=== PATIENT | female | born 1945 | race Caucasian/White ===

== ENCOUNTER 2017-06-16 12:28 | Observation (INO) ==
[2017-06-16] MEDS ORDERED: 0.9 % Sodium Chloride 1,000 ML ONE (13:15)
[2017-06-16] MEDS: 0.9 % Sodium Chloride 1,000 ML IVC ONE ×2 (13:16→13:25)
--- NOTE | 2017-06-16 13:21 | Emergency Department Note ---
Disposition Clinical Impression: Hypokalemia Constipation Qualifiers: Constipation type: unspecified constipation type Qualified Code(s): K59.00 - Constipation, unspecified Disposition: Admitted As Inpatient Condition: Good Referrals: Hosea Land MD [Primary Care Provider] - Forms: ED Satisfaction Letter, Work/School Release Abdominal Pain HPI - General Chief Complaint: ED Abdominal Pain Stated Complaint: constipated Time Seen by Provider: 06/16/17 12:37 Source: patient, family, EMS Mode of arrival: EMS Nursing Notes Reviewed: Yes Vital Signs Reviewed: Yes - History of Present Illness HPI Narrative: 72-year-old female presents to the ER with a chief complaint of constipation. Patient states she has not had a bowel movement since Saturday. Reports previous to this she had URI symptoms 2 weeks ago. She has a history of asthma and was using her nebulizer at home. States that she was having loose bowel movements but then stopped having them on Saturday. Reports usually goes 1-2 times a day. No prior history of constipation. Denies any history of intra- abdominal surgeries. She has felt nauseated but no vomiting. She has had food aversion during this time. No dysuria or hematuria. No fevers, chest pain or shortness of breath. No other complaints. Pt Subjective Complaint: abdominal pain Onset (ago): day(s) Consistency: constant Location: periumbilical, LLQ, RLQ Pain Severity: moderate Pain Scale: 8 Quality: aching Radiation: none Migration to: no migration Improves with: nothing Worsens with: nothing Associated symptoms: Reports: nausea, constipation. Denies: vomiting, diarrhea , fever, dysuria, hematuria Treatments prior to arrival: none - Related Data Home Medications Medication Instructions Recorded Confirmed Furosemide [Lasix] 40 mg PO DAILY 11/19/15 06/16/17 Hydroxychloroquine [Plaquenuil] 200 mg PO BID 11/19/15 06/16/17 Levothyroxine [Synthroid] 75 mcg PO DAILY 11/19/15 06/16/17 Losartan Potassium [Cozaar] 100 mg PO DAILY 11/19/15 06/16/17 Pravastatin Sodium [Pravachol] 20 mg PO DAILY 11/19/15 06/16/17 Primidone [Mysoline] 100 mg PO BID 11/19/15 06/16/17 Propranolol HCl 40 mg PO BID 11/19/15 06/16/17 Sertraline [Zoloft] 100 mg PO DAILY 11/19/15 06/16/17 Fluticasone/Vilanterol [Breo 1 puff IH DAILY 09/22/16 06/16/17 Ellipta 100-25 Mcg INH] Tizanidine HCl 2 mg PO HS 09/22/16 06/16/17 Vit C/E/Zn/Coppr/Lutein/Zeaxan 1 cap PO DAILY 06/16/17 06/16/17 [Preservision Areds 2 Softgel] hydroCHLOROthiazide 25 mg PO DAILY 06/16/17 06/16/17 [Hydrochlorothiazide] Allergies Allergy/AdvReac Type Severity Reaction Status Date / Time morphine Allergy Rash Verified 11/19/15 11:43 All systems ED: reviewed and negative except as stated. Constitutional: Denies: fever Cardiovascular: Denies: chest pain Respiratory: Denies: dyspnea Gastrointestinal: Reports: abdominal pain, nausea, constipation. Denies: vomiting, diarrhea Genitourinary: Denies: dysuria, hematuria Abdominal Pain PMH - Past Medical History Medical history: Reports: arthritis, asthma, CHF, fibromyalgia, GERD, hyperlipidemia, hypertension, thyroid disease, other Female Surgical History: Reports: other BARK SKINNER history: Reports: no BARK SKINNER history Psychiatric history: Reports: anxiety, depression - Social History Smoking status: Never smoker Alcohol use: Reports: none Drug use: Reports: none Physical Exam - General Limitations: no limitations General appearance: alert, in no apparent distress - Head Head exam: atraumatic - Eye Eye exam: Present: normal appearance - ENT ENT exam: normal exam - Neck Neck exam: Present: normal inspection - Chest Chest inspection: Present: normal inspection, symmetric chest wall rise - Respiratory Respiratory exam: Present: normal lung sounds bilaterally - Cardiovascular Cardiovascular exam: Present: regular rate, normal rhythm, normal heart sounds - Abdominal Exam Abdominal exam: Present: soft, tenderness (Mild tenderness to palpation in the periumbilical as well as bilateral lower quadrants). Absent: guarding, rigidity - Extremities Exam Extremities exam: Present: normal inspection, full ROM - Expanded Upper Extremity Exam Shoulder exam: Present: normal inspection, full ROM Arm exam: Present: normal inspection, full ROM Elbow exam: Present: normal inspection, full ROM Forearm/Wrist exam: Present: normal inspection, full ROM Hand exam: Present: normal inspection, full ROM - Expanded Lower Extremity Exam Hip/Pelvis exam: Present: normal inspection, full ROM Upper leg exam: Present: normal inspection, full ROM Knee exam: Present: normal inspection, full ROM Lower leg exam: Present: normal inspection, full ROM Ankle exam: Present: normal inspection, full ROM Foot/toe exam: Present: normal inspection, full ROM - Skin Skin exam: Present: warm, dry Course Course Narrative: Patient seen and examined. We will obtain a CT scan of the abdomen and pelvis as well as labs and urinalysis. We will do this without contrast as she has no history of intra-abdominal surgeries and obstruction be less likely. - Reevaluation(s) Reevaluation #1: Discussed results of imaging and labs with the patient. We will give her an enema here. We will also replace her potassium oral and IV. Her magnesium is normal. Likely from poor intake while continuing to take her Lasix. Vital Signs Temperature 97.7 F 06/16/17 12:31 Pulse Rate 62 06/16/17 12:31 Respiratory Rate 18 06/16/17 12:31 Blood Pressure 145/53 06/16/17 12:31 O2 Sat by Pulse Oximetry 98 06/16/17 12:31 Temperature 97.7 F 06/16/17 12:31 Pulse Rate 62 06/16/17 12:31 Respiratory Rate 18 06/16/17 12:31 Blood Pressure 145/53 06/16/17 12:31 O2 Sat by Pulse Oximetry 98 06/16/17 12:31 Oxygen Delivery Oxygen Delivery Room Air Abdominal Pain - MDM Narrative Medical decision making narrative: 72-year-old female presents to the ER due to constipation for several days. CT scan demonstrates constipation without evidence of obstruction. Labs urinalysis reviewed. She does demonstrate a UTI. Treated with Rocephin for this. For constipation she received an enema while here. She is noted to be profoundly Elizabet make with a potassium of 2.4. Magnesium is normal. We will begin replacement with oral and IV. Likely from her Lasix with decreased appetite recently. She is admitted to the hospitalist service for hypokalemia. - Lab Data Lab results reviewed: Yes I reviewed the patient's lab results. Result diagrams: 06/16/17 13:12 06/16/17 13:12 Lab Results 06/16/17 06/16/17 06/16/17 Range/Units 13:12 13:12 13:25 WBC 12.0 H (4.3-11.1) K/mcL RBC 4.63 (3.82-4.97) M/mcL Hgb 13.7 (11.5-15.4) g/dL Hct 40.2 (35.3-44.9) % MCV 86.8 (83.0-100.0) fL MCH 29.6 (28.0-33.3) pg MCHC 34.1 (31.6-35.5) g/dL RDW 12.7 (11.5-14.5) % Plt Count 328 (140-400) K/mcL MPV 9.3 L (9.4-12.4) fL Immature Gran % 0.6 (0-4) % Seg Neutrophils % 84.1 % Lymphocytes % 9.0 % Monocytes % 5.9 % Eosinophils % 0.1 % Basophils % 0.3 % Neutrophils # 10.1 H (1.6-8.9) K/mcL Lymphocytes # 1.1 (0.6-4.6) K/mcL Monocytes # 0.7 (0.0-1.3) K/mcL Eosinophils # 0.0 (0.0-0.6) K/mcL Basophils # 0.0 (0.0-0.2) K/mcL PT 11.2 (9.4-12.1) Seconds INR 1.0 Sodium 129 L (136-145) mEq/L Potassium 2.4 L* (3.5-5.1) mEq/L Chloride 87 L (98-107) mEq/L Carbon Dioxide 33 H (23-29) mEq/L BUN 15 (8-23) mg/dL Creatinine 0.71 (0.60-1.20) mg/dL Est GFR ( Amer) > 60 (> 60) Est GFR (Non-Af Amer) > 60 (> 60) BUN/Creatinine Ratio 21 (6-26) Glucose 128 H (70-105) mg/dL Calculated Osmolality 270 L (280-300) Calcium 9.0 (8.6-10.3) mg/dL Magnesium 1.6 (1.6-2.6) mg/dL Total Bilirubin 0.5 (0.3-1.0) mg/dL Direct Bilirubin 0.1 (0.0-0.2) mg/dL Indirect Bilirubin 0.4 (0.0-1.2) mg/dL AST 30 (13-39) Units/L ALT 30 (7-52) Units/L Alkaline Phosphatase 80 (34-104) Units/L Serum Total Protein 6.4 (6.4-8.9) g/dL Albumin 4.2 (3.5-5.7) g/dL Globulin 2.2 L (2.4-3.5) g/dL Albumin/Globulin Ratio 1.9 (1.1-2.2) Lipase 4 L (11-82) Units/L Urine Color (Yellow) Urine Clarity (Clear) Urine pH (5.0-8.0) pH Units Ur Specific [place] (1.010-1.025) Urine Protein (Neg-Trace) mg/dL Urine Glucose (UA) (Normal) mg/dL Urine Ketones (Negative) mg/dL Urine Blood (Negative) Urine Nitrite (Negative) Urine Bilirubin (Negative) Urine Urobilinogen (Normal) mg/dL Ur Leukocyte Esterase (Negative) Urine Microscopic RBC (0-3) per hpf Urine Microscopic WBC (0-3) per hpf Ur Squamous Epith Cells (None-Few) per lpf Urine Bacteria (None-Few) per hpf Hyaline Casts (None-Few) per lpf Ur Culture Indicated? (NO) 06/16/17 Range/Units 14:33 WBC (4.3-11.1) K/mcL RBC (3.82-4.97) M/mcL Hgb (11.5-15.4) g/dL Hct (35.3-44.9) % MCV (83.0-100.0) fL MCH (28.0-33.3) pg MCHC (31.6-35.5) g/dL RDW (11.5-14.5) % Plt Count (140-400) K/mcL MPV (9.4-12.4) fL Immature Gran % (0-4) % Seg Neutrophils % % Lymphocytes % % Monocytes % % Eosinophils % % Basophils % % Neutrophils # (1.6-8.9) K/mcL Lymphocytes # (0.6-4.6) K/mcL Monocytes # (0.0-1.3) K/mcL Eosinophils # (0.0-0.6) K/mcL Basophils # (0.0-0.2) K/mcL PT (9.4-12.1) Seconds INR Sodium (136-145) mEq/L Potassium (3.5-5.1) mEq/L Chloride (98-107) mEq/L Carbon Dioxide (23-29) mEq/L BUN (8-23) mg/dL Creatinine (0.60-1.20) mg/dL Est GFR ( Amer) (> 60) Est GFR (Non-Af Amer) (> 60) BUN/Creatinine Ratio (6-26) Glucose (70-105) mg/dL Calculated Osmolality (280-300) Calcium (8.6-10.3) mg/dL Magnesium (1.6-2.6) mg/dL Total Bilirubin (0.3-1.0) mg/dL Direct Bilirubin (0.0-0.2) mg/dL Indirect Bilirubin (0.0-1.2) mg/dL AST (13-39) Units/L ALT (7-52) Units/L Alkaline Phosphatase (34-104) Units/L Serum Total Protein (6.4-8.9) g/dL Albumin (3.5-5.7) g/dL Globulin (2.4-3.5) g/dL Albumin/Globulin Ratio (1.1-2.2) Lipase (11-82) Units/L Urine Color Yellow (Yellow) Urine Clarity Turbid A (Clear) Urine pH 7.0 (5.0-8.0) pH Units Ur Specific [place] 1.011 (1.010-1.025) Urine Protein 30 H (Neg-Trace) mg/dL Urine Glucose (UA) Normal (Normal) mg/dL Urine Ketones Negative (Negative) mg/dL Urine Blood Large H (Negative) Urine Nitrite Positive A (Negative) Urine Bilirubin Negative (Negative) Urine Urobilinogen Normal (Normal) mg/dL Ur Leukocyte Esterase Moderate H (Negative) Urine Microscopic RBC 0-3 (0-3) per hpf Urine Microscopic WBC 0-3 (0-3) per hpf Ur Squamous Epith Cells Many H (None-Few) per lpf Urine Bacteria Many H (None-Few) per hpf Hyaline Casts None Seen (None-Few) per lpf Ur Culture Indicated? YES A (NO) - Radiology Data Radiology results reviewed: Yes I reviewed the patient's radiology results. Abdomen/Pelvis CT 06/16/17 12:59 IMPRESSION: 1. Findings suggestive of constipation. 2. No acute infective or inflammatory process. 3. Stable findings including diverticulosis, posterior subcapsular right lobe of liver cyst or hemangioma and calcified fibroids. D/ / Ulices Wright MD / Ulices Wright MD Interpreting Provider: Ulices Wright MD - EKG Data EKG attestation: Yes I reviewed and interpreted this EKG. EKG results narrative: EKG demonstrates sinus bradycardia with a rate of 59 bpm. Left axis deviation. Normal intervals. Poor R-wave progression. No gross ST elevations or depressions. No acute ischemic findings. No significant changes from previous EKG dated 05/03/16. Brent - Brent Situation: Demographics, MOA Background: Presenting Complaint, Relevant PMH, Meds, & Allergies Assessment: Course and respsone to treatment, Exam Concerns, Patient/Family Expectation, Pertinant Lab Results Recommendation: Barrier(s) to disposition, Recommendation based on pending studies, treatments, or consults Brent Report Given to: Dr. Doug Kennedy Repor Time: 17:11 Attestation Statement - Attestation Attestation: I examined this patient and my medical decision-making was reviewed with the Resident Physician, Dr. Weiner. I agree with the documented findings, disposition and treatment plan as described except to the extent set forth below. Patient is a 72-year-old white female who presents to the emergency department today with gradually worsening generalized weakness, and constipation. Patient states she is unable to have a bowel movement last Saturday. Since that time she has had some mild underlying nausea and gradually worsening food aversion. Patient denies any localized abdominal pain or flank pain, denies any urinary symptoms, no fevers or chills. Patient is complaining of just some abdominal bloating and distention. She has not had any vomiting or bright red blood per rectum. I agree with the patient's physical exam findings as documented. Patient underwent lab evaluation which showed a significant hypokalemia. Patient states she is on potassium replacement at home and has been tolerating this and taking as directed. Patient's magnesium is within normal limits. Patient was found to have bladder distention as well as a large amount of stool in the rectum on CT scan. No other abnormality was appreciated on the CAT scan. Patient currently is undergoing IV potassium replacement, will have a Mendez catheter placed to drain her bladder for urinary retention, and an enema for her constipation. Once Mendez was placed patient was found to have had a UTI and will be started on antibiotics. Due to her low potassium and need for ongoing replacement we will admit the patient for further evaluation and management as well as her generalized weakness. Case was discussed with hospitalist who accepted the patient for admission.
[2017-06-16 13:23] LABS: Basophils % 0.3 %; Eosinophils % 0.1 %; Hematocrit 40.2 % (35.3-44.9); Hemoglobin 13.7 g/dL (11.5-15.4); Immature Granulocytes % 0.6 % (0-4); Lymphocytes # 1.1 K/mcL (0.6-4.6); Mean Corpuscular HGB Conc 34.1 g/dL (31.6-35.5); Mean Corpuscular Hemoglobin 29.6 pg (28.0-33.3); Mean Corpuscular Volume 86.8 fL (83.0-100.0); Mean Platelet Volume 9.3 fL (9.4-12.4); Monocytes # 0.7 K/mcL (0.0-1.3); Monocytes % 5.9 %; Neutrophils # 10.1 K/mcL (1.6-8.9); Platelet Count 328 K/mcL (140-400); Red Blood Count 4.63 M/mcL (3.82-4.97); Red Cell Distribution Width 12.7 % (11.5-14.5); Segmented Neutrophils % 84.1 %
[2017-06-16] MEDS ORDERED: *HR* HYDROmorphone (PF) 1 MG/ML SYRINGE IVP ONE ×2 (13:33→16:01)
[2017-06-16] MEDS ORDERED: *HR* HYDROmorphone 2 MG/ML SYRINGE ONE ×2 (13:35→16:02)
[2017-06-16 13:41] LABS: Prothrombin Time 11.2 Seconds (9.4-12.1)
[2017-06-16 13:46] LABS: Alanine Aminotransferase 30 Units/L (7-52); Albumin 4.2 g/dL (3.5-5.7); Albumin/Globulin Ratio 1.9 (1.1-2.2); Alkaline Phosphatase 80 Units/L (34-104); Aspartate Amino Transferase 30 Units/L (13-39); BUN/Creatinine Ratio 21 (6-26); Bilirubin,Direct 0.1 mg/dL (0.0-0.2); Bilirubin,Indirect 0.4 mg/dL (0.0-1.2); Bilirubin,Total 0.5 mg/dL (0.3-1.0); Blood Urea Nitrogen 15 mg/dL (8-23); Carbon Dioxide 33 mEq/L (23-29); Chloride 87 mEq/L (98-107); Globulin 2.2 g/dL (2.4-3.5); Glucose 128 mg/dL (70-105); Lipase 4 Units/L (11-82); Osmolality,Calculated 270 (280-300); Potassium 2.4 mEq/L (3.5-5.1); Sodium 129 mEq/L (136-145); Total Protein 6.4 g/dL (6.4-8.9); eGFR For African Americans > 60 (> 60); eGFR For Non-African Americans > 60 (> 60)
[2017-06-16 14:09] LABS: Magnesium 1.6 mg/dL (1.6-2.6)
[2017-06-16] MEDS ORDERED: Milk and Molasses Enema 200 ML RC ONE (14:39)
[2017-06-16 14:41] LABS: Bilirubin,Urine Negative (Negative); Blood,Urine Large (Negative); Clarity,Urine Turbid (Clear); Color,Urine Yellow (Yellow); Glucose,Urine (UA) Normal (Normal); Ketones,Urine Negative (Negative); Leukocyte Esterase,Urine Moderate (Negative); Nitrite,Urine Positive (Negative); Protein,Urine 30 mg/dL (Neg-Trace); Specific Gravity,Urine 1.011 (1.010-1.025); Urobilinogen,Urine Normal (Normal)
[2017-06-16 14:43] LABS: Bacteria,Urine Many per hpf (None-Few); Hyaline Casts,Urine None Seen per lpf (None-Few); Squamous Epithelial Cell,Urine Many per lpf (None-Few); WBC,Urine 0-3 per hpf (0-3)
[2017-06-16 14:53] LABS: RBC,Urine 0-3 per hpf (0-3)
[2017-06-16] MEDS ORDERED: cefTRIAXone 1,000 MG in Water for inj. (sterile) 20 ML 10 ML IVP ONE (15:19)
[2017-06-16] MEDS ORDERED: Ondansetron 4 MG/2 ML VIAL ONE (16:03)
[2017-06-16] MEDS ORDERED: Ondansetron 4 MG/2 ML VIAL IVP PRN (18:12)
[2017-06-16] MEDS ORDERED: Acetaminophen 325 MG TABLET PO PRN (18:12)
[2017-06-16] MEDS ORDERED: Naloxone 0.4 MG/ML INJ IVP PRN (18:12)
[2017-06-16] MEDS ORDERED: Bisacodyl 10 MG RECTAL SUPPOSITORY RC PRN ×2 (18:17→18:49)
--- NOTE | 2017-06-16 18:41 | Internal Med History&Physical ---
Date of Encounter: 06/16/17 Time of Encounter: 18:36 Assessment and Plan (1) Hypokalemia Current visit: Yes Status: Acute Patient received 50 mEq of potassium in the ER. We will recheck potassium at 9 PM and replace as needed Continuous cardiac monitoring EKG with QTc 421, Noted accelerated junctional rhythm, most likely from hypokalemia- we will replace potassium and recheck EKG. If unchanged consider cardiology consult (2) Constipation Current visit: Yes Status: Acute CT scan of abdomen shows constipation and no other infectious or inflammatory process. Patient has not had a bowel movement since Saturday normally she has at least 2 bowel movements a day which are loose. Her potassium level has been low and she has had poor oral intake over the past few days. She was given another molasses enema in the ER with little return. We will give Dulcolax suppository and lactulose orally. 2 encourage oral fluids and ambulation Qualifiers: Constipation type: unspecified constipation type Qualified Code(s): K59.00 - Constipation, unspecified (3) Hypertension Current visit: No Status: Chronic We will continue with losartan, hold Lasix for now due to hypokalemia Qualifiers: Hypertension type: essential hypertension Qualified Code(s): I10 - Essential (primary) hypertension (4) Hypothyroidism Current visit: No Status: Chronic Continue with Synthroid Qualifiers: Hypothyroidism type: acquired Qualified Code(s): E03.9 - Hypothyroidism, unspecified (5) DVT prophylaxis Current visit: Yes Status: Acute [facility] Internal Medicine - H&P: HPI Chief complaint: Constipation Admitted From: Emergency Dept Plans for Post Hospital Care: Home History of present illness: Ms. Adam is a 72 year old female past medical history of Sjogren's syndrome hypertension hypothyroid anxiety fibromyalgia essential tremor. According to the patient she was recently treated for upper respiratory symptoms approximately 2 weeks ago she was on antibiotics and steroids she completed her treatments as prescribed. Normally she has approximately 2 bowel movements a day which are loose, however she has not had a bowel movement since Saturday of past week. She does not have any history of constipation she denies any history of intra-abdominal surgeries. She has had nausea no vomiting as well as an aversion to food. She denies any abdominal pain dysuria or hematuria however she does admit to urgency and frequency. No fevers chills chest pain or shortness of breath. She presented to the ER the above complaints. Lab work was completed which did reveal a significant hypokalemia 2.4. CT of abdomen did show constipation and no other acute or inflammatory process. Patient was given K riders, milk of molasses enema as well as Rocephin. She has been admitted for further work up evaluation. Presently patient complains of abdominal discomfort she had a small bowel movement after an enema. She is passing gas abdomen is soft. She is hemodynamically stable at this time. Past Med Surg Social Fam HX - Past Medical History Medical history: arthritis, asthma, CHF, fibromyalgia, GERD, hyperlipidemia, hypertension, thyroid disease, other Psychiatric history: anxiety, depression - Past Surgical History Surgical History: knee replacement, other - Social History Smoking Status: Never smoker Smokeless Tobacco Status: No Alcohol use: none Drug use: none - Family History Father Adopted: No Living Status: Hx Family Cardiac Disorders: Yes (chf) Hx Family GI Disorders: Yes (liver disease) Internal Medicine - H&P: Meds Furosemide [Lasix] 40 mg PO DAILY 11/19/15 [History] Hydroxychloroquine [Plaquenuil] 200 mg PO BID 11/19/15 [History] Levothyroxine [Synthroid] 75 mcg PO DAILY 11/19/15 [History] Losartan Potassium [Cozaar] 100 mg PO DAILY 11/19/15 [History] Pravastatin Sodium [Pravachol] 20 mg PO DAILY 11/19/15 [History] Primidone [Mysoline] 100 mg PO BID 11/19/15 [History] Propranolol HCl 40 mg PO BID 11/19/15 [History] Sertraline [Zoloft] 100 mg PO DAILY 11/19/15 [History] Fluticasone/Vilanterol [Breo Ellipta 100-25 Mcg INH] 1 puff IH DAILY 09/22/16 [ History] Tizanidine HCl 2 mg PO HS 09/22/16 [History] Vit C/E/Zn/Coppr/Lutein/Zeaxan [Preservision Areds 2 Softgel] 1 cap PO DAILY [History] hydroCHLOROthiazide [Hydrochlorothiazide] 25 mg PO DAILY 06/16/17 [History] 3 Allergy/AdvReac Type Severity Reaction Status Date / Time morphine Allergy Rash Verified 11/19/15 11:43 All Systems PM: A 10-system review of systems was performed and is negative for pertinent findings except as documented above in the HPI. - Constitutional Constitutional: no chills, no fever(s), no night sweats - EENT Eyes: no change in vision, no discharge, no pain, no photophobia Nose, mouth and throat: no dysphagia, no nasal discharge, no neck pain, no sore throat - Cardiovascular Cardiovascular ROS IM: no chest pain, no diaphoresis, no dyspnea, no lightheadedness, no palpitations, no syncope - Respiratory Respiratory: no cough, no dyspnea, no wheezing, no excessive phlegm production - Gastrointestinal Gastrointestinal: bloating, constipation, no abdominal pain, no diarrhea, no hematemesis, no hematochezia, no melena, no nausea, no vomiting - Genitourinary Genitourinary: no change in urinary stream, no dysuria, no flank pain, no hematuria - Musculoskeletal Musculoskeletal ROS IM: no numbness, no tingling - Integumentary Integumentary IM: no rash, no unusual bruising - Neurological Neurological ROS: no confusion, no convulsions, no focal weakness, no numbness, no tingling, no tremor(s) - Hematologic/Lymphatic Hematologic/Lymphatic: no easy bruising - Constitutional Vitals: Temp Pulse Resp BP Pulse Ox 97.7 F 62 16 142/58 98 06/16/17 12:31 06/16/17 12:31 06/16/17 17:44 06/16/17 17:44 06/16/17 12:31 General appearance: Present: A&O X 3, answers questions appropriately - Head Head exam: Present: atraumatic, normocephalic - Eye Eye exam: Present: PERRL, conjuntiva pink, sclera anicteric Pupils: Present: PERRL - Neck Neck exam general surgery: Present: supple, trachea midline. Absent: lymphadenopathy - Respiratory Respiratory exam: Present: CTAB. Absent: accessory muscle use, rales, rhonchi, wheezes - Cardiovascular Cardiovascular exam: Present: RRR, +S1, +S2. Absent: diastolic murmur, gallop, rubs, systolic murmur - GI/Abdominal GI/Abdominal exam: Present: normal bowel sounds, soft, no peritoneal signs. Absent: distended, tenderness - Extremities Exam Extremities exam: Present: warm, radial pulses palpable and symmetrical. Absent : calf tenderness, cyanotic, pedal edema - Neurological Exam Neurological exam: Present: CN II-XII intact, oriented X3, no focal deficits. Absent: pronater drift, facial droop, speech deficit - Skin Skin exam: Present: dry, intact Internal Med - H&P Results - Labs CBC & Chem 7: 06/16/17 13:12 06/16/17 13:12 - Diagnostic Studies Other Images Additional comments: Abdomen/Pelvis CT 06/16/17 12:59 IMPRESSION: 1. Findings suggestive of constipation. 2. No acute infective or inflammatory process. 3. Stable findings including diverticulosis, posterior subcapsular right lobe of liver cyst or hemangioma and calcified fibroids. D/ / Ulices Wright MD / Ulices Wright MD Interpreting Provider: Ulices Wright MD
--- NOTE | 2017-06-16 18:43 | Event Note ---
Date of Encounter: 06/16/17 Time of Encounter: 18:43 Patient seen and examined with HAZARDOUS MATERIAL SPECIALIST. Agree with assessment and plan
[2017-06-16] MEDS: tiZANidine 4 MG TABLET PO SCH (21:14)
[2017-06-16] MEDS: Primidone 50 MG TABLET PO SCH (21:14)
[2017-06-16] MEDS: Lactulose Oral Soln 20 GM/30 ML UDC PO SCH (21:15)
[2017-06-16] MEDS ORDERED: *HR* HYDROmorphone (PF) 1 MG/ML SYRINGE IVP PRN (21:33)
[2017-06-16] MEDS ORDERED: 0.9 % Sodium Chloride 500 ML ONE (21:44)
[2017-06-17 05:50] LABS: Basophils % 0.4 %; Eosinophils # 0.1 K/mcL (0.0-0.6); Eosinophils % 1.6 %; Hematocrit 33.6 % (35.3-44.9); Immature Granulocytes % 0.5 % (0-4); Lymphocytes # 1.9 K/mcL (0.6-4.6); Lymphocytes % 22.9 %; Mean Corpuscular HGB Conc 34.8 g/dL (31.6-35.5); Mean Corpuscular Hemoglobin 30.3 pg (28.0-33.3); Mean Platelet Volume 9.7 fL (9.4-12.4); Monocytes # 0.7 K/mcL (0.0-1.3); Monocytes % 9.1 %; Neutrophils # 5.3 K/mcL (1.6-8.9); Platelet Count 290 K/mcL (140-400); Red Blood Count 3.86 M/mcL (3.82-4.97); Red Cell Distribution Width 13.1 % (11.5-14.5); Segmented Neutrophils % 65.5 %
[2017-06-17 05:53] LABS: Hemoglobin 11.7 g/dL (11.5-15.4)
[2017-06-17 06:03] LABS: BUN/Creatinine Ratio 17 (6-26); Blood Urea Nitrogen 11 mg/dL (8-23); Calcium 8.5 mg/dL (8.6-10.3); Carbon Dioxide 31 mEq/L (23-29); Chloride 91 mEq/L (98-107); Glucose 104 mg/dL (70-105); Magnesium 1.8 mg/dL (1.6-2.6); Osmolality,Calculated 268 (280-300); Potassium 2.9 mEq/L (3.5-5.1); Sodium 129 mEq/L (136-145); eGFR For African Americans > 60 (> 60); eGFR For Non-African Americans > 60 (> 60)
[2017-06-17] MEDS: hydroCHLOROthiazide 25 MG TABLET PO SCH (08:55)
[2017-06-17] MEDS: cefTRIAXone 1,000 MG in Water for inj. (sterile) 20 ML 10 ML IVP SCH (08:56)
[2017-06-17] MEDS: Lactulose Oral Soln 20 GM/30 ML UDC PO SCH ×2 (08:56→20:15)
[2017-06-17] MEDS: Primidone 50 MG TABLET PO SCH ×2 (08:56→20:16)
[2017-06-17] MEDS: (Fluticasone/Vilanterol [Breo Ellipta 100-25 Mcg Inh]) IH SCH (08:57)
[2017-06-17] MEDS: (Vit C/E/Zn/Coppr/Lutein/Zeaxan [Preservision Areds 2) PO SCH (08:57)
[2017-06-17] MEDS ORDERED: traMADol 50 MG TABLET PO ONE (12:46)
--- NOTE | 2017-06-17 17:08 | Internal Med Progress Note ---
Date of Encounter: 06/17/17 Time of Encounter: 15:50 - Assessment and plan (1) UTI (urinary tract infection) Current Visit: Yes Status: Acute Assessment and plan: UA indicative of urinary tract infection. Preliminary culture shows gram positive cocci. Continue Rocephin. Narrow antibiotic with final culture and sensitivity. Patient was asymptomatic. She did have urinary retention and Wilson was placed. She has requested that it be removed. Order placed and will attempt to void trial. Qualifiers: Urinary tract infection type: acute cystitis Hematuria presence: with hematuria Qualified Code(s): N30.01 - Acute cystitis with hematuria (2) Hypertension Current Visit: Yes Status: Chronic Assessment and plan: Chronic. Continue home medications. Qualifiers: Hypertension type: essential hypertension Qualified Code(s): I10 - Essential (primary) hypertension (3) Hypothyroidism Current Visit: Yes Status: Chronic Assessment and plan: Chronic. Continue home dose of levothyroxine. Qualifiers: Hypothyroidism type: acquired Qualified Code(s): E03.9 - Hypothyroidism, unspecified (4) GERD (gastroesophageal reflux disease) Current Visit: Yes Status: Chronic Assessment and plan: Chronic. Patient is asymptomatic. Continue home medications. Qualifiers: Esophagitis presence: esophagitis presence not specified Qualified Code(s) : K21.9 - Gastro-esophageal reflux disease without esophagitis (5) Obesity (BMI 30-39.9) Current Visit: Yes Status: Chronic Assessment and plan: Chronic. Lifestyle modifications. (6) Hypokalemia Current Visit: Yes Status: Acute Assessment and plan: Continue to monitor level and supplement. Patient is currently receiving 20 mEq K rider. His taken longer than expected to infuse, so level has not been rechecked today. Check labs in the morning. (7) Constipation Current Visit: Yes Status: Acute Assessment and plan: Patient reports no bowel movement for 6 days. Normally she has at least 2 bowel movements a day. Patient has been taking lactulose and had a milk and molasses enema in the emergency department without relief. Her abdomen is slightly distended and firm with hypoactive bowel sounds. She denies tenderness with palpation. Continue Dulcolax, lactulose Colace has been added. Soapsuds enemas until clear today. Qualifiers: Constipation type: unspecified constipation type Qualified Code(s): K59.00 - Constipation, unspecified (8) DVT prophylaxis Current Visit: Yes Status: Acute Assessment and plan: CAMILLA kimble. - Time Spent With Patient less than 15 minutes - Subjective Interval history: Pt was seen and assessed at 1550, daughter at bs. Pt denies headache, chest pain , dizziness, SOB. Pt reports abdominal pain and continued constipation. She has requested that wilson be removed. - Constitutional Vitals: Temp Pulse Resp BP Pulse Ox 97 F L 79 18 126/74 94 06/17/17 16:48 06/17/17 16:48 06/17/17 16:48 06/17/17 16:48 06/17/17 16:48 General appearance: Present: A&O X 3, pleasant, no acute distress, answers questions appropriately. Absent: mild distress - Head Head exam: Present: atraumatic, normal inspection, normocephalic - Eye Eye exam: Present: normal appearance, conjuntiva pink, sclera anicteric - Neck Neck exam general surgery: Present: supple, trachea midline. Absent: lymphadenopathy - Respiratory Respiratory exam: Present: CTAB. Absent: accessory muscle use, rales, rhonchi, wheezes - Cardiovascular Cardiovascular exam: Present: RRR, +S1, +S2. Absent: diastolic murmur, gallop, rubs, systolic murmur - GI/Abdominal GI/Abdominal exam: Present: distended, normal bowel sounds, soft. Absent: hepatomegaly, tenderness - Extremities Exam Extremities exam: Present: normal inspection, warm, radial pulses palpable and symmetrical. Absent: calf tenderness, cyanotic, pedal edema - Neurological Exam Neurological exam: Present: alert, oriented X3, no focal deficits. Absent: altered, facial droop, speech deficit - Skin Skin exam: Present: dry, intact, normal color, warm. Absent: rash Internal Medicine: Result - Labs CBC & Chem 7: 06/17/17 05:08 06/17/17 05:08 Labs: Short CBC 06/17/17 Range/Units 05:08 WBC 8.1 (4.3-11.1) K/mcL Hgb 11.7 D (11.5-15.4) g/dL Hct 33.6 L (35.3-44.9) % Plt Count 290 (140-400) K/mcL Neutrophils # 5.3 (1.6-8.9) K/mcL BMP 06/16/17 06/17/17 21:15 05:08 Sodium 129 L Potassium 2.8 L 2.9 L Chloride 91 L Carbon Dioxide 31 H BUN 11 Creatinine 0.66 Glucose 104 Calcium 8.5 L - ABG Interpretation ABG results: PT/INR, D-dimer PT 11.2 Seconds (9.4-12.1) 06/16/17 13:25 Consult Discharge Plan - Plan Referrals: Hosea Land MD [Primary Care Provider] -
[2017-06-17] MEDS: tiZANidine 4 MG TABLET PO SCH (20:18)
[2017-06-18 04:05] LABS: Basophils % 0.6 %; Eosinophils # 0.1 K/mcL (0.0-0.6); Eosinophils % 1.3 %; Hematocrit 32.9 % (35.3-44.9); Hemoglobin 11.4 g/dL (11.5-15.4); Immature Granulocytes % 0.3 % (0-4); Lymphocytes # 2.3 K/mcL (0.6-4.6); Mean Corpuscular HGB Conc 34.7 g/dL (31.6-35.5); Mean Corpuscular Hemoglobin 30.2 pg (28.0-33.3); Mean Platelet Volume 9.5 fL (9.4-12.4); Monocytes # 0.7 K/mcL (0.0-1.3); Monocytes % 9.2 %; Platelet Count 309 K/mcL (140-400); Red Blood Count 3.78 M/mcL (3.82-4.97); Red Cell Distribution Width 13.1 % (11.5-14.5); Segmented Neutrophils % 56.6 %
[2017-06-18 04:38] LABS: BUN/Creatinine Ratio 14 (6-26); Blood Urea Nitrogen 8 mg/dL (8-23); Calcium 8.6 mg/dL (8.6-10.3); Carbon Dioxide 28 mEq/L (23-29); Chloride 92 mEq/L (98-107); Glucose 105 mg/dL (70-105); Osmolality,Calculated 265 (280-300); Potassium 2.8 mEq/L (3.5-5.1); Sodium 128 mEq/L (136-145); eGFR For African Americans > 60 (> 60); eGFR For Non-African Americans > 60 (> 60)
[2017-06-18] MEDS: hydroCHLOROthiazide 25 MG TABLET PO SCH (08:03)
[2017-06-18] MEDS: Lactulose Oral Soln 20 GM/30 ML UDC PO SCH (08:03)
[2017-06-18] MEDS: Primidone 50 MG TABLET PO SCH ×2 (08:03→20:22)
[2017-06-18] MEDS: (Fluticasone/Vilanterol [Breo Ellipta 100-25 Mcg Inh]) IH SCH (08:04)
[2017-06-18] MEDS: cefTRIAXone 1,000 MG in Water for inj. (sterile) 20 ML 10 ML IVP SCH (08:04)
[2017-06-18] MEDS: (Vit C/E/Zn/Coppr/Lutein/Zeaxan [Preservision Areds 2) PO SCH (08:04)
--- NOTE | 2017-06-18 09:39 | Internal Med Progress Note ---
Date of Encounter: 06/18/17 Time of Encounter: 10:07 - Assessment and plan (1) Constipation Current Visit: Yes Status: Acute Assessment and plan: reported no bowel movement for [address] finding suggestive of constipation , otherwise non-acute. Appears resolved, now having loose stool. Hold bowel regimen, stool for C. difficile as she has been on 3 rounds of ATB in the last 3 weeks. Qualifiers: Constipation type: unspecified constipation type Qualified Code(s): K59.00 - Constipation, unspecified (2) UTI (urinary tract infection) Current Visit: Yes Status: Acute Assessment and plan: UA indicative of UTI. Urine cx with staph epidermidis, sensitive to Doxycycline. Stop ceftriaxone, start doxycycline. Qualifiers: Urinary tract infection type: acute cystitis Hematuria presence: with hematuria Qualified Code(s): N30.01 - Acute cystitis with hematuria (3) Hypokalemia Current Visit: Yes Status: Acute Assessment and plan: K 2.8; no EKG changes. Possible secondary to chronic loose stool. Mg 1.8. Replace K with IV and PO. Give 1 time Mg rider. Monitor repeat CMP (4) Hyponatremia Current Visit: Yes Status: Acute Assessment and plan: Na 128. Asymptomatic, neurologically intact. Per chart review appears to be somewhat chronic. Stop HCTZ, check TSH, urine osmolarity and sodium. Consult nephrology if no improvement (5) Hypertension Current Visit: Yes Status: Chronic Assessment and plan: per hx. BP controlled. Stop home HCTZ with hyponatremia. Continue home ARB. Monitor BP and titrate PRN Qualifiers: Hypertension type: essential hypertension Qualified Code(s): I10 - Essential (primary) hypertension (6) Hypothyroidism Current Visit: Yes Status: Chronic Assessment and plan: per hx. Continue home dose of levothyroxine. TSH pending Qualifiers: Hypothyroidism type: acquired Qualified Code(s): E03.9 - Hypothyroidism, unspecified (7) DVT prophylaxis Current Visit: Yes Status: Acute Assessment and plan: Heparin - Subjective Interval history: Seen and examined at bedside, patient is naming. Information obtained from chart review and patient report. Says she is feeling well she has no real complaints. Says she had satisfactory bowel movement yesterday evening. Of note patient reports that her stools are typically loose and watery. No abdominal pain, tolerating regular diet. No previous history of hyponatremia, she has not seen nephrology in the past. Alert and oriented, no confusion, no paresthesias. - Constitutional Vitals: Temp Pulse Resp BP Pulse Ox 97.9 F 71 18 122/72 96 06/18/17 07:24 06/18/17 07:24 06/18/17 07:24 06/18/17 07:24 06/18/17 07:24 General appearance: Present: A&O X 3, pleasant, no acute distress, answers questions appropriately. Absent: mild distress - Head Head exam: Present: atraumatic, normocephalic - Eye Eye exam: Present: PERRL, conjuntiva pink, sclera anicteric Pupils: Present: PERRL - Neck Neck exam general surgery: Present: supple, trachea midline. Absent: lymphadenopathy - Respiratory Respiratory exam: Present: CTAB. Absent: accessory muscle use, rales, rhonchi, wheezes - Cardiovascular Cardiovascular exam: Present: RRR, +S1, +S2. Absent: diastolic murmur, gallop, rubs, systolic murmur - GI/Abdominal GI/Abdominal exam: Present: normal bowel sounds, soft, no peritoneal signs. Absent: distended, tenderness - Extremities Exam Extremities exam: Present: warm, radial pulses palpable and symmetrical. Absent : calf tenderness, cyanotic, pedal edema - Neurological Exam Neurological exam: Present: CN II-XII intact, oriented X3, no focal deficits. Absent: pronater drift, facial droop, speech deficit - Skin Skin exam: Present: dry, intact Internal Medicine: Result - Labs CBC & Chem 7: 06/18/17 03:45 06/18/17 03:45 Labs: Short CBC 06/18/17 Range/Units 03:45 WBC 7.0 (4.3-11.1) K/mcL Hgb 11.4 L (11.5-15.4) g/dL Hct 32.9 L (35.3-44.9) % Plt Count 309 (140-400) K/mcL Neutrophils # 4.0 (1.6-8.9) K/mcL BMP 06/17/17 06/18/17 19:30 03:45 Sodium 128 L Potassium 2.8 L 2.8 L Chloride 92 L Carbon Dioxide 28 BUN 8 Creatinine 0.58 L Glucose 105 Calcium 8.6 - ABG Interpretation ABG results: PT/INR, D-dimer PT 11.2 Seconds (9.4-12.1) 06/16/17 13:25 Consult Discharge Plan - Plan Referrals: Hosea Land MD [Primary Care Provider] -
[2017-06-18 10:43] LABS: BUN/Creatinine Ratio 10 (6-26); Blood Urea Nitrogen 6 mg/dL (8-23); Calcium 9.2 mg/dL (8.6-10.3); Carbon Dioxide 30 mEq/L (23-29); Chloride 93 mEq/L (98-107); Glucose 128 mg/dL (70-105); Magnesium 1.8 mg/dL (1.6-2.6); Osmolality,Calculated 269 (280-300); Potassium 2.9 mEq/L (3.5-5.1); Sodium 130 mEq/L (136-145); eGFR For African Americans > 60 (> 60); eGFR For Non-African Americans > 60 (> 60)
[2017-06-18 10:49] LABS: Magnesium 1.8 mg/dL (1.6-2.6)
[2017-06-18] MEDS: Doxycycline 100 MG in 0.9 % Sodium Chloride Mini Bag 100 ML IVPB SCH ×2 (11:14→23:15)
[2017-06-18 14:30] LABS: Sodium, Urine 52.8 mEq/L
[2017-06-18] MEDS: *HR* Heparin 5,000 UNIT/ML VIAL SQ SCH ×2 (14:57→21:40)
[2017-06-18] MEDS ORDERED: Ipratropium/Albuterol Neb 3 ML IH PRN (18:37)
[2017-06-18] MEDS: tiZANidine 4 MG TABLET PO SCH (20:22)
[2017-06-18] MEDS: Famotidine 20 MG TABLET PO SCH (21:40)
[2017-06-19 05:15] LABS: BUN/Creatinine Ratio 14 (6-26); Blood Urea Nitrogen 8 mg/dL (8-23); Calcium 8.5 mg/dL (8.6-10.3); Carbon Dioxide 26 mEq/L (23-29); Chloride 99 mEq/L (98-107); Glucose 103 mg/dL (70-105); Magnesium 1.7 mg/dL (1.6-2.6); Osmolality,Calculated 271 (280-300); Potassium 3.4 mEq/L (3.5-5.1); Sodium 131 mEq/L (136-145); eGFR For African Americans > 60 (> 60); eGFR For Non-African Americans > 60 (> 60)
[2017-06-19] MEDS: *HR* Heparin 5,000 UNIT/ML VIAL SQ SCH (06:08)
--- NOTE | 2017-06-19 07:54 | Electrocardiograph Report ---
[address] [place] [address] Test Date: 2017-06-16 Pat Name: Taiwo Adam Department: 104 Room: 3B Gender: F [employer]: : 1945 Requested By: Kevin Weiner Order Number: [id number] Reading MD: Yaniv Alvarado MD Measurements Intervals [place] Rate: 59 P: 18 WI: 185 QRS: -1 QRSD: 106 T: 15 QT: 437 QTc: 436 Interpretive Statements SINUS BRADYCARDIA Poor R wave progression Electronically Signed On 06-19-2017 6:41:22 EST by Yaniv Alvarado MD
--- NOTE | 2017-06-19 07:55 | Electrocardiograph Report ---
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
[2017-06-19] MEDS: Primidone 50 MG TABLET PO SCH (09:33)
[2017-06-19] MEDS: Famotidine 20 MG TABLET PO SCH (09:33)
[2017-06-19] MEDS: (Vit C/E/Zn/Coppr/Lutein/Zeaxan [Preservision Areds 2) PO SCH (09:37)
[2017-06-19] MEDS: (Fluticasone/Vilanterol [Breo Ellipta 100-25 Mcg Inh]) IH SCH (09:37)
[2017-06-19] MEDS: Doxycycline 100 MG in 0.9 % Sodium Chloride Mini Bag 100 ML IVPB SCH (11:36)
[2017-06-19 12:08] VITALS: BP 136/81
--- NOTE | 2017-06-19 14:11 | Discharge Summary ---
Date of Encounter: 06/19/17 Time of Encounter: 14:01 - Discharge Diagnosis (1) Constipation Priority: Primary Status: Resolved Comments: reported no bowel movement for [address] finding suggestive of constipation , otherwise non-acute. Appears resolved, now having loose stool. Stool negative for C. difficile. Cont PRN miralax at discharge. No constipation or diarrhea at time of discharge. Qualifiers: Constipation type: unspecified constipation type Qualified Code(s): K59.00 - Constipation, unspecified (2) UTI (urinary tract infection) Priority: Primary Status: Acute Comments: UA indicative of UTI. Urine cx with staph epidermidis, sensitive to Doxycycline. Continue doxycycline at discharge, to complete a total of 7 days. Qualifiers: Urinary tract infection type: acute cystitis Hematuria presence: with hematuria Qualified Code(s): N30.01 - Acute cystitis with hematuria (3) Hypokalemia Priority: Primary Status: Acute Comments: K 2.8; no EKG changes. Possible secondary to chronic loose stool. Mg 1.8. Magnesium and potassium improved with replacement. K 3.4 at discharge. Recommend repeat CMP with ECP on 06/21/17. (4) Hyponatremia Priority: Primary Status: Acute Comments: Na 128. Asymptomatic, neurologically intact. Per chart review appears to be somewhat chronic. Na improved with stopping HCTZ. Recommend repeat CMP with PCP on 06/21/17. Na 131 at discharge (5) Hypertension Priority: Secondary Status: Chronic Comments: per hx. BP controlled. Stop home HCTZ with hyponatremia. Continue home ARB. BP controlled without HCTZ. Recommend follow-up with PCP for BP recheck. Qualifiers: Hypertension type: essential hypertension Qualified Code(s): I10 - Essential (primary) hypertension (6) Hypothyroidism Priority: Secondary Status: Chronic Comments: per hx. TSH 2.086. Cont home levothyroxine Qualifiers: Hypothyroidism type: acquired Qualified Code(s): E03.9 - Hypothyroidism, unspecified - Discharge Medications Prescriptions: Doxycycline 100 mg PO BID #14 capsule Polyethylene Glycol 3350 [MiraLAX] 17 gm PO DAILY PRN #30 powd.pack PRN Reason: Constipation Home Medications: Furosemide [Lasix] 40 mg PO DAILY 11/19/15 [History] Hydroxychloroquine [Plaquenuil] 200 mg PO BID 11/19/15 [History] Levothyroxine [Synthroid] 75 mcg PO DAILY 11/19/15 [History] Losartan Potassium [Cozaar] 100 mg PO DAILY 11/19/15 [History] Pravastatin Sodium [Pravachol] 20 mg PO DAILY 11/19/15 [History] Primidone [Mysoline] 100 mg PO BID 11/19/15 [History] Propranolol HCl 40 mg PO BID 11/19/15 [History] Sertraline [Zoloft] 100 mg PO DAILY 11/19/15 [History] Fluticasone/Vilanterol [Breo Ellipta 100-25 Mcg INH] 1 puff IH DAILY 09/22/16 [ History] Tizanidine HCl 2 mg PO HS 09/22/16 [History] Vit C/E/Zn/Coppr/Lutein/Zeaxan [Preservision Areds 2 Softgel] 1 cap PO DAILY [History] Doxycycline 100 mg PO BID #14 capsule 06/19/17 [Rx] Polyethylene Glycol 3350 [MiraLAX] 17 gm PO DAILY PRN #30 powd.pack 06/19/17 [Rx ] Allergies/Adverse Reactions: 3 Allergy/AdvReac Type Severity Reaction Status Date / Time morphine Allergy Rash Verified 11/19/15 11:43 Procedures/tests Complete & Pending: Procedures Performed prior 72 hours Category Date Time Status ECG 12 lead ECG [ECG] Routine Y 06/16/17 18:12 Completed EKG [ECG 12 lead ECG] [ECG] AM 0600 Y 06/17/17 06:00 Ordered Date of admission: 06/16/17 17:12 Primary care physician: Hosea Land MD Discharging clinician: Yeny Chopra Anticipated date of discharge: 06/19/17 - Patient Status Disposition: Home, Self-Care Condition: Good Overall status at discharge: patient is progressing back to baseline - Discharge Instructions Instructions: Urinary Tract Infection in Women (DC), Hyponatremia (DC), Doxycycline (By mouth) Follow Up With: Hosea Land MD [Primary Care Provider] - 06/21/17 10:15 am - Diet and Activity Activity: increase activity as tolerated Diet: advance to your usual diet Interval History: Seen and examined at bedside, says she feels better like to discharge him today. No further diarrhea. Does not feel constipated at this time. She has appoint with PCP on 06/21/17. Advised to follow-up for BP recheck and lab re- draws Hospital course: See assessment and plan for hospital course - Time Spent with Patient Total time spent providing and/or coordinating discharge services: - Constitutional Vitals: Temp Pulse Resp BP Pulse Ox 98.0 F 77 17 136/81 96 06/19/17 12:07 06/19/17 12:07 06/19/17 12:07 06/19/17 12:07 06/19/17 12:07 General appearance: Present: A&O X 3, pleasant, no acute distress, answers questions appropriately. Absent: mild distress - Head Head exam: Present: atraumatic, normocephalic - Eye Eye exam: Present: PERRL, conjuntiva pink, sclera anicteric Pupils: Present: PERRL - Neck Neck exam general surgery: Present: supple, trachea midline. Absent: lymphadenopathy - Respiratory Respiratory exam: Present: CTAB. Absent: accessory muscle use, rales, rhonchi, wheezes - Cardiovascular Cardiovascular exam: Present: RRR, +S1, +S2. Absent: diastolic murmur, gallop, rubs, systolic murmur - GI/Abdominal GI/Abdominal exam: Present: normal bowel sounds, soft, no peritoneal signs. Absent: distended, tenderness - Extremities Exam Extremities exam: Present: warm, radial pulses palpable and symmetrical. Absent : calf tenderness, cyanotic, pedal edema - Neurological Exam Neurological exam: Present: CN II-XII intact, oriented X3, no focal deficits. Absent: pronater drift, facial droop, speech deficit - Skin Skin exam: Present: dry, intact
== END 2017-06-19 16:30 | disposition home or self-care (01) ==
LOC: EMEROO 12:28 → 2SOUTHHOLD 12:28 → 3BNU 20:53
PROVIDERS: ADMIT Hospitalist; ATTEND Internal Medicine